=== PATIENT | female | born 1965 | race Caucasian/White ===

== ENCOUNTER 2018-09-01 19:42 | Emergency (ER) | payer SELFPAY | END 2018-09-01 23:54 | disposition left against medical advice (07) | LOC: ER 19:42 | DX: M54.2 Cervicalgia (principal); Z53.21 Procedure and treatment not carried out due to patient leaving prior to being seen by health care provider ==

== ENCOUNTER 2018-09-02 13:16 | Emergency (ER) | payer SELFPAY ==
[~2018-09-02] VITALS: Ht 160 cm; Wt 53.0 kg
[2018-09-02] MEDS ORDERED: IBUPROFEN 400MG TABLET PO ONE (16:45)
[2018-09-02 16:47] VITALS: BP 158/90
== END 2018-09-02 17:45 | disposition home or self-care (01) ==
LOC: ER 13:16
DX: M54.2 Cervicalgia (principal); Z98.890 Other specified postprocedural states
CPT/HCPCS: 81025; 99282